=== PATIENT | female | born 1990 | race Caucasian/White ===

== ENCOUNTER 2017-08-08 13:10 | Emergency (ER) | payer SELFPAY ==
[2017-08-08] MEDS ORDERED: Cephalexin 500 MG Cap PO ONE (13:11)
[2017-08-08] MEDS ORDERED: Take Home: Cephalexin 500 MG Cap, 4 Cap Pack PO ONE (14:05)
--- NOTE | 2017-08-08 14:11 | EDM.PDOC ---
ED HPI GENERAL MEDICAL PROBLEM - General Chief Complaint: Genitourinary Problem Stated Complaint: UTI Time Seen by Provider: 08/08/17 13:40 History Limitations: Reports: No Limitations - History of Present Illness INITIAL COMMENTS - FREE TEXT/NARRATIVE: Earlene is a pleasant 27 year old female, at 14 weeks gestation, who presents to the ED with complaints of dysuria. She reports that all through the night last night she felt miserable. Reports significant discomfort with urination, urinary frequency, and urgency. Denies any vaginal bleeding or leaking fluid. Denies any fever, chills, back pain. Denies any hematuria. Recently had her initial OB appointment with her PCP Dr. Faulkner and urine was clear at that time. She reports that this morning she is feeling somewhat better, but figured since she is she better come get her urine checked. Onset Date: 08/07/17 Duration: Constant Location: Reports: Other (suprapubid) Quality: Reports: Pressure Severity: Moderate Improves with: Reports: Medication Associated Symptoms: Denies: Confusion, Chest Pain, Cough, cough w sputum, Diaphoresis, Fever/Chills, Headaches, Loss of Appetite, Nausea/Vomiting, Rash, Seizure, Shortness of Breath, Weakness Treatments WATCH ELECTRICIAN: Reports: Acetaminophen Suprapubic Pain Score (Numeric/FACES): 5 - Related Data Allergies Allergy/AdvReac Type Severity Reaction Status Date / Time No Known Allergies Allergy Verified 08/08/17 13:11 Home Meds: Home Meds Cephalexin [Keflex] 500 mg PO BID 3 Days #6 capsule 08/08/17 [Rx] Cholecalciferol (Vitamin D3) [Vitamin D] 5,000 units PO DAILY 08/08/17 [History] Fish Oil/[place]-3 Fatty Acids [Fish Oil] 500 mg PO DAILY 08/08/17 [History] PNV95/Ferrous Fumarate/FA [ Formula Tablet] 1 tab PO DAILY 08/08/17 [ History] Past Medical History HEENT History: Reports: Impaired Vision Cardiovascular History: Reports: None Respiratory History: Reports: None Gastrointestinal History: Reports: None Genitourinary History: Reports: None [employer] History: Reports: Musculoskeletal History: Reports: None Neurological History: Reports: None Psychiatric History: Reports: None Endocrine/Metabolic History: Reports: None Hematologic History: Reports: None Immunologic History: Reports: None Oncologic (Cancer) History: Reports: None Dermatologic History: Reports: Eczema - Infectious Disease History Infectious Disease History: Reports: None - Past Surgical History Head Surgeries/Procedures: Reports: None HEENT Surgical History: Reports: None Cardiovascular Surgical History: Reports: None Respiratory Surgical History: Reports: None GI Surgical History: Reports: None Female Surgical History: Reports: Section Endocrine Surgical History: Reports: None Neurological Surgical History: Reports: None Musculoskeletal Surgical History: Reports: None Oncologic Surgical History: Reports: None Dermatological Surgical History: Reports: None Social & Family History - Family History Family Medical History: Noncontributory - Tobacco Use Smoking Status *Q: Never Smoker - Caffeine Use Caffeine Use: Reports: Coffee - Recreational Drug Use Recreational Drug Use: No ED ROS GENERAL - Review of Systems Review Of Systems: ROS reveals no pertinent complaints other than HPI. Constitutional: Denies: Fever, Chills Respiratory: Reports: No Symptoms Cardiovascular: Reports: No Symptoms GI/Abdominal: Reports: No Symptoms : Reports: Dysuria, Frequency, Urgency. Denies: Discharge, Flank Pain, Hematuria, Incontinence Musculoskeletal: Reports: No Symptoms Neurological: Reports: No Symptoms ED EXAM, RENAL/ - Physical Exam Exam: See Below Exam Limited By: No Limitations General Appearance: Alert, WD/WN, No Apparent Distress Head: Atraumatic, Normocephalic Neck: Normal Inspection, Supple, Non-Tender, Full Range of Motion Respiratory/Chest: No Respiratory Distress, Lungs Clear, Normal Breath Sounds, No Accessory Muscle Use, Chest Non-Tender Cardiovascular: Normal Peripheral Pulses, Regular Rate, Rhythm, No Edema, No Gallop, No JVD, No Murmur, No Rub GI/Abdominal: Normal Bowel Sounds, Soft, Non-Tender, No Organomegaly, No Distention, No Abnormal Bruit, No Mass, Other (FHT 140's) Back Exam: Normal Inspection, Full Range of Motion. No: CVA Tenderness (L), CVA Tenderness (R) Psychiatric: Normal Affect, Normal Mood Course - Vital Signs Last Recorded V/S: Last Vital Signs Temp 97 F 08/08/17 13:16 Pulse 85 08/08/17 13:16 Resp 18 08/08/17 13:16 BP 118/74 08/08/17 13:16 Pulse Ox 100 08/08/17 13:16 - Orders/Labs/Meds Orders: Active Orders 24 hr Category Date Time Status CULTURE URINE [RM] Stat Lab 08/08/17 13:30 Received Labs: Laboratory Tests 08/08/17 Range/Units 13:30 Urine Color Yellow (YELLOW) Urine Appearance Cloudy (CLEAR) Urine pH 7.0 (4.5-8.0) Ur Specific [place] 1.020 (1.003-1.020) Urine Protein 100 H (NEGATIVE) mg/dL Urine Glucose (UA) Negative (NEGATIVE) mg/dL Urine Ketones Trace H (NEGATIVE) mg/dL Urine Occult Blood Large H (NEGATIVE) Urine Nitrite Negative (NEGATIVE) Urine Bilirubin Negative (NEGATIVE) Urine Urobilinogen 0.2 (0.2-1.0) EU/dL Ur Leukocyte Esterase Large H (NEGATIVE) Urine RBC >100 H (0-5) /HPF Urine WBC >100 H (0-5) /HPF Urine WBC Clumps Occasional H (NOT SEEN) /HPF Ur Squamous Epith Cells Few H (NOT SEEN) /HPF Urine Bacteria Few H (NOT SEEN) /HPF Urinalysis Comment Meds: Medications Discontinued Medications Generic Name Dose Route Start Last Admin Trade Name Freq PRN Reason Stop Dose Admin Cephalexin 2 packet 08/08/17 14:05 08/08/17 14:18 Take Home: Cephalexin 500 Mg, 4 Cap Pack PO 08/08/17 14:06 2 packet ONETIME ONE Administration - Re-Assessments/Exams Free Text/Narrative Re-Assessment/Exam: Discussed UA results with patient. Departure - Departure Time of Disposition: 14:09 Disposition: Home, Self-Care 01 Condition: Good Clinical Impression: UTI, Urinary tract infectious disease - Discharge Information Prescriptions: Cephalexin [Keflex] 500 mg PO BID 3 Days #6 capsule Instructions: Urinary Tract Infection, Adult, [id number] Referrals: Christin Faulkner MD [Primary Care Provider] - Forms: ED Department Discharge Additional Instructions: Meds as directed Sent home with 8 capsules of Keflex for 4 days of antibiotic treatment. Remaining 3 days will be at [facility] [place]. Push fluids AZO as needed for painful urination. This will turn your urine orange. Tylenol as needed for discomfort Follow up if symptoms worsen or do not improve - My Orders Last 24 Hours: My Active Orders 08/08/17 13:30 CULTURE URINE [RM] Stat - Assessment/Plan Last 24 Hours: My Active Orders 08/08/17 13:30 CULTURE URINE [RM] Stat
== END 2017-08-08 14:20 | disposition home or self-care (01) ==
LOC: CC.ED 13:10
DX: O23.42 Unspecified infection of urinary tract in pregnancy, second trimester (principal); Z79.899 Other long term (current) drug therapy; Z3A.14 14 weeks gestation of pregnancy
CPT/HCPCS: 81001; 87086; 87088; 87186; 99283; A9270-GY